=== PATIENT | male | born 2000 | race African-American/Black ===

== ENCOUNTER 2024-10-09 02:10 | Emergency (ER) | payer OTHER ==
[2024-10-09 03:01] LABS: Glucose,Whole Blood 95 mg/dL (70-110)
--- NOTE | 2024-10-09 03:13 | ED ---
Extremity Problem HPI - General Chief complaint: Extremity Problem,Nontraumatic Stated complaint: Right foot tingling Time Seen by Provider: 10/09/24 02:25 Source: patient, RN notes reviewed Mode of arrival: ambulatory Limitations: no limitations - History of Present Illness Initial comments: This is a 24-year-old male who presents to the emergency department for numbness in his toes. States that for the last 3 days he has had intermittent bouts of numbness in his middle 3 toes on the right foot. The numbness does not extend past the toes. Denies any pain associated with this. Has not noticed any color or temperature changes. He still has sensation, states that it just seems to be reduced. He is on his feet a lot at work. Denies any injuries. He does not have any pain in his leg or back. He has no hx of diabetes. - Related Data Allergies Allergy/AdvReac Type Severity Reaction Status Date / Time No Known Allergies Allergy Verified 10/09/24 02:19 Review of Systems ROS Statement: Those systems with pertinent positive or pertinent negative responses have been documented in the HPI. ROS Other: All systems not noted in ROS Statement are negative. 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 History of Any Multi-Drug Resistant Organisms: None Reported Past Surgical History: No Surgical Hx Reported Past Psychological History: No Psychological Hx Reported Smoking Status: Never smoker Past Alcohol Use History: Occasional Past Drug Use History: None Reported General Exam Limitations: no limitations General appearance: alert, in no apparent distress Head exam: Present: atraumatic, normocephalic, normal inspection Respiratory exam: Present: normal lung sounds bilaterally. Absent: respiratory distress, wheezes, rales, rhonchi, stridor Cardiovascular Exam: Present: regular rate, normal rhythm, normal heart sounds. Absent: systolic murmur, diastolic murmur, rubs, gallop, clicks Extremities exam: Present: other (Patient's foot is uniform in both color and temperature. He has no tenderness. Full range of motion. 2+ DP and PT pulses. Capillary refill less than 1 second.) Neurological exam: Present: alert, oriented X3, CN II-XII intact Psychiatric exam: Present: normal affect, normal mood Course Vital Signs 10/09/24 10/09/24 02:19 03:29 Temperature 98.1 F 97.8 F Pulse Rate 90 72 Respiratory 19 18 Rate Blood Pressure 127/84 128/75 O2 Sat by Pulse 97 98 Oximetry Medical Decision Making - Medical Decision Making This is a 24-year-old male who presents to the emergency department for numbness in his toes. Was pt. sent in by a medical professional or institution? @ -No Did you speak to anyone other than the patient for history? @ -No Did you review nursing and triage notes? @ -Yes, and I agree, it is accurate with regards to the patient's symptoms. Were old charts reviewed? @ -No Differential Diagnosis? @ -Peripheral neuropathy due to diabetes, vitamin deficiency, nerve compression, Dodge's neuroma, vascular issue, MS, this is not meant to be an all-inclusive list. EKG interpreted by me (3pts min.)? @ -Not obtained X-rays interpreted by me (1pt min.)? @ -Not obtained CT interpreted by me (1pt min.)? @ -Not obtained U/S interpreted by me (1pt. min.)? @ -Not obtained What testing was considered but not performed? (CT, X-rays, U/S, labs)? Why? @ -None What meds were considered but not given? Why? @ -None Did you discuss the management of the patient with other professionals? @ -No Did you reconcile home meds? @ -No Was smoking cessation discussed for >3mins.? @ -No Was critical care preformed (if so, how long)? @ -No Were there social determinants of health that impacted care today? How? (Homelessness, low income, unemployed, alcoholism, drug addiction, transportation, low edu. Level, literacy, decrease access to med. care, penitentiary, rehab)? @ -No Was there de-escalation of care discussed even if they declined? (Discuss DNR or withdrawal of care, Hospice)? @ -No What co-morbidities impacted this encounter? (DM, HTN, Smoking, COPD, CAD, Cancer, CVA, Hep., AIDS, mental health diagnosis, sleep apnea, morbid obesity)? @ -None Was patient admitted / discharged? @ -Discharged. Physical examination was entirely unremarkable. He reported some numbness and tingling in the middle 3 toes on the right foot. There were no color or temperature changes to the skin. He was neurovascularly intact. He also had no tenderness or deformities. Patient did appear to be wearing poor fitting footwear. We discussed that nerve compression can be a potential cause of this, which can also be from his foot wear. Blood sugar checked and found to be 95. Patient also denies a history of diabetes. He was given a postoperative Velcro shoe that can be adjusted to be looser fitting to see if that gives any relief to his symptoms. He is advised to pay attention to worsening symptoms such as changes in skin color or temperature, pain, or progressive symptoms. Patient discharged home in stable condition and advised to have close follow-up with his PCP. Case discussed with ED attending Dr. Shook. Return precautions reviewed in depth, the patient is instructed to return to the emergency department with any new, worsening, or concerning symptoms. Patient verbalized understanding. Undiagnosed new problem with uncertain prognosis? @ -None Drug Therapy requiring intensive monitoring for toxicity (Heparin, Nitro, Insulin, Cardizem)? @ -None Were any procedures done? @ -None Diagnosis/symptom? @ -Paresthesias of right toes Acute, or Chronic, or Acute on Chronic? @ -Acute Uncomplicated (without systemic symptoms) or Complicated (systemic symptoms)? @ -Uncomplicated Side effects of treatment? @ -None Exacerbation, Progression, or Severe Exacerbation] @ -Not applicable Poses a threat to life or bodily function? @ -No - Lab Data Lab Results 10/09/24 Range/Units 02:59 POC Glucose (mg/dL) 95 (70-110) mg/dL POC Glu [employer] ID Fredo Boogie Disposition Clinical Impression: Paresthesia of right foot Disposition: HOME SELF-CARE Instructions (If sedation given, give patient instructions): Paresthesia (ED) Additional Instructions: Return to the emergency department with any new, worsening, or concerning symptoms, especially if the numbness spreads, your toes appear discolored or cold, or you develop pain. Try to wear looser footwear or use the Velcro shoe provided. Try to become established with a primary care provider for ongoing medical care and reevaluation of your symptoms. Is patient prescribed a controlled substance at d/c from ED?: No Referrals: None,Stated [Primary Care Provider] - 1-2 days Forms: Area PCPs Time of Disposition: 03:13
[2024-10-09] MEDS: DEXAMETHASONE SOD PHOSPHATE 10 MG/ML 1 ML VIAL IM STA (03:22)
[2024-10-09 03:30] VITALS: BP 128/75; PULSE 72; RESP 18; TEMP 97.8
== END 2024-10-09 03:30 | disposition home or self-care (01) ==
LOC: EC 02:10
DX: R20.2 Paresthesia of skin (principal)
CPT/HCPCS: 36415; 99283; 96372; J1100